=== PATIENT | male | born 1980 | race Caucasian/White ===

== ENCOUNTER 2023-12-31 09:00 | Inpatient (IN) | payer OTHER ==
[2023-12-31 09:59] VITALS: BMI 36.6
[2023-12-31] MEDS ORDERED: guaiFENesin 600 MG TABLET.ER (FP) PO PRN (10:42)
[2023-12-31] MEDS ORDERED: MAG HYDROX/AL HYDROX/SIMETH 30 ML UNIT-DOSE CUP PO PRN (10:42)
[2023-12-31] MEDS ORDERED: IBUPROFEN 600 MG TABLET (FP) PO PRN (10:42)
[2023-12-31] MEDS ORDERED: MAGNESIUM HYDROX 2400MG/30ML ORAL SUSPENSION 30 ML CUP PO PRN (10:42)
[2023-12-31] MEDS ORDERED: POLYETHYLENE GLYCOL (HEALTHYLAX) 3350 17 GM PACKET PO PRN (10:42)
[2023-12-31] MEDS ORDERED: BENZONATATE 200 MG CAPSULE PO PRN (10:42)
[2023-12-31] MEDS ORDERED: IBUPROFEN 400 MG TABLET (FP) PO PRN (10:42)
[2023-12-31] MEDS ORDERED: NALOXONE (NARCAN) HCL 4 MG/0.1 ML SPRAY NS PRN (10:42)
[2023-12-31] MEDS ORDERED: NICOTINE POLACRILEX 2 MG GUM BUC PRN (10:42)
[2023-12-31] MEDS ORDERED: NALOXONE HCL 0.4 MG/ML VIAL IM PRN (10:42)
[2023-12-31] MEDS ORDERED: LOPERAMIDE HCL 2 MG CAPSULE PO PRN (10:42)
[2023-12-31] MEDS ORDERED: ACETAMINOPHEN 325 MG TABLET (FP) PO PRN (10:42)
[2023-12-31] MEDS ORDERED: hydrOXYzine PAMOATE 25 MG CAPSULE (FP) PO PRN (10:42)
[2023-12-31] MEDS ORDERED: BENZOCAINE/MENTHOL (CHLORASEPTIC ) LOZENGE MM PRN (10:42)
[2023-12-31] MEDS ORDERED: TUBERCULIN PPD 5 TU/0.1ML VIAL ID ONE ×2 (14:09→14:45)
[2023-12-31] MEDS: TUBERCULIN PPD 5 TU/0.1ML SYRINGE (IN PATIENT USE ONLY) ID ONE (14:12)
[2023-12-31] MEDS: NALTREXONE HCL 50 MG TABLET PO SCH (16:20)
[2023-12-31] MEDS: THIAMINE 100 MG TABLET PO SCH (21:54)
[2023-12-31] MEDS: MELATONIN 5 MG TABLETS PO SCH (21:54)
[2024-01-01] MEDS: NALTREXONE HCL 50 MG TABLET PO SCH (10:12)
[2024-01-01] MEDS: PRENATAL VITAMINS W/ FOLIC ACID TABLET (FP) PO SCH (10:12)
[2024-01-01] MEDS: NICOTINE 14 MG/24 HOURS TOPICAL PATCH TD SCH (10:13)
[2024-01-01 14:00] LABS: PH,URINE 6.5 (5.0-8.0); URINE APPEARANCE CLEAR; URINE BILIRUBIN NEGATIVE (NEGATIVE); URINE COLOR YELLOW; URINE GLUCOSE (UA) NEGATIVE (NEGATIVE); URINE KETONE NEGATIVE (NEGATIVE); URINE LEUK ESTERASE NEGATIVE (NEGATIVE); URINE NITRITE NEGATIVE (NEGATIVE); URINE PROTEIN NEGATIVE (NEGATIVE)
[2024-01-04 16:51] LABS: HEMATOCRIT 45.7 % (35.4-49); HEMOGLOBIN 15.4 GM/dL (11.7-16.9); MCH 33.2 pg (25.7-33.7); MCHC 33.8 g/dl (32.0-35.9); MEAN CELL VOLUME 98.4 fl (80-96); MEAN PLT VOLUME 8.8 fl (7.5-11.1); PLATELET COUNT 264 10^3/uL (134-434); RBC 4.65 M/mm3 (4.00-5.60); RDW 13.3 % (11.9-15.9); WHITE BLOOD COUNT 8.7 K/mm3 (4.0-10.0)
[2024-01-04 16:55] LABS: POTASSIUM 4.2 mmol/L (3.5-5.1)
[2024-01-04 16:57] LABS: CALCIUM 9.3 mg/dL (8.5-10.1)
[2024-01-04 16:58] LABS: ALBUMIN 3.8 g/dl (3.4-5.0); BLOOD UREA NITROGEN 9.1 mg/dL (7-18); MAGNESIUM 1.9 mg/dL (1.8-2.4)
[2024-01-04 17:02] LABS: BILIRUBIN,TOTAL 0.5 mg/dL (0.2-1); TOT PROT 6.7 g/dl (6.4-8.2)
[2024-01-04 17:09] LABS: CREATININE 0.9 mg/dL (0.55-1.3)
[2024-01-04] MEDS: amLODIPine BESYLATE 5 MG TABLET (FP) PO ONE (23:03)
[2024-01-05] MEDS: amLODIPine BESYLATE 2.5 MG TABLET (FP) PO SCH (10:11)
[2024-01-06] MEDS: LACTULOSE 20 GM/30 ML UDC (FOR ORAL USE ONLY) PO SCH (13:14)
[2024-01-17 07:27] VITALS: RESP 18
[2024-01-19] MEDS ORDERED: NALTREXONE MICROSPHERES (VIVITROL) 380 MG DISP.SYRIN IM ONE (14:00)
[2024-01-20] MEDS: NALTREXONE MICROSPHERES (VIVITROL) 380 MG DISP.SYRIN IM ONE (13:51)
[2024-01-21 07:18] VITALS: TEMP 96.9
[2024-01-21 09:19] VITALS: BP 121/85; PULSE 94
== END 2024-01-21 09:30 | disposition home or self-care (01) | DRG 772 ==
LOC: YASAS 09:00 → Y5N 11:07
PROVIDERS: ADMIT Allergy & Immunology; ATTEND Psychiatry & Neurology Pain Medicine
PROC: HZ42ZZZ Group Counseling for Substance Abuse Treatment, Cognitive-Behavioral (ICD-10-PCS; principal; 2023-12-31)
DX: F10.20 Alcohol dependence, uncomplicated (principal); F12.20 Cannabis dependence, uncomplicated; F17.210 Nicotine dependence, cigarettes, uncomplicated; E72.20 Disorder of urea cycle metabolism, unspecified; E10.9 Type 1 diabetes mellitus without complications; Z79.4 Long term (current) use of insulin; R76.11 Nonspecific reaction to tuberculin skin test without active tuberculosis
CPT/HCPCS: 36415; 71046-TC-FY; 80053; 80305; 81003; 82140; 82306; 83036; 83735; 85027; 86780; 86803; 87811; 93005; 93010; J2315